=== PATIENT | female | born 1985 | race African-American/Black ===

== ENCOUNTER 2017-01-06 21:25 | Emergency (ER) | payer OTHER, MEDICAID ==
[~2017-01-06] VITALS: Ht 160 cm; Wt 50.0 kg
[2017-01-06 21:35] VITALS: BP 121/74; PULSE 100; RESP 18; TEMP 98; O2SAT 99
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
[2017-01-06] MEDS ORDERED: SODIUM CHLORIDE 0.9% FLUSH 10 ML FLUSH IVF PRN (21:45)
[2017-01-06] MEDS ORDERED: VENTAER INH (21:47)
[2017-01-06 21:54] LABS: AUTOMATED NEUTROPHIL # 5.8 TH/MM3 (1.8-7.7); BASOPHIL # 0.1 TH/MM3 (0-0.2); EOSINOPHIL # 0.1 TH/MM3 (0-0.4); EOSINOPHIL % 1.5 % (0.0-4.0); HEMATOCRIT 41.5 % (35.0-46.0); HEMO FLAGS DIFF FINAL; LYMPH % 16.2 % (9.0-44.0); LYMPHOCYTE # 1.3 TH/MM3 (1.0-4.8); MEAN CELL VOLUME 89.8 FL (80.0-100.0); MEAN CORPUSCULAR HEMOGLOBIN 29.6 PG (27.0-34.0); MONO % 9.6 % (0.0-8.0); NEUT % 71.7 % (16.0-70.0); PLATELET COUNT 267 TH/MM3 (150-450); RED BLOOD COUNT 4.63 MIL/MM3 (4.00-5.30); RED CELL DISTRIBUTION WIDTH 13.2 % (11.6-17.2); WHITE BLOOD COUNT 8.1 TH/MM3 (4.0-11.0)
[2017-01-06 22:08] LABS: APTT (PATIENT) 25.9 SEC (24.3-30.1); INTERNATIONAL NORMALIZED RATIO 1.1 RATIO; PROTHROMBIN TIME - PATIENT 12.6 SEC (9.8-11.6)
[2017-01-06 22:12] LABS: BICARBONATE 27.4 MEQ/L (21.0-32.0); POTASSIUM 3.5 MEQ/L (3.5-5.1)
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
[2017-01-06] MEDS ORDERED: ACETAMINOPHEN 500 MG CPLT PO ONE (23:00)
[2017-01-06] MEDS ORDERED: IOHEXOL 350 MG/ML 10 ML VIAL (for RAD DIAG) IV ONE (23:05)
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
[2017-01-07] MEDS ORDERED: CYCL5TAB PO (00:04)
[2017-01-07] MEDS ORDERED: NAPR-239 PO (00:04)
== END 2017-01-07 00:14 | disposition home or self-care (01) ==
LOC: NEPC 21:25
DX: S09.90XA Unspecified injury of head, initial encounter (principal); M54.2 Cervicalgia; V49.40XA Driver injured in collision with unspecified motor vehicles in traffic accident, initial encounter; Y92.411 Interstate highway as the place of occurrence of the external cause
CPT/HCPCS: 70450; 71010; 71260; 72125; 72128; 72131; 74177; 80048; 84703; 85025; 85610; 85730; 99284; Q9967